=== PATIENT | female | born 1950 | race Caucasian/White ===

== ENCOUNTER 2019-03-28 12:25 | Emergency (ER) | payer MEDICARE, BC ==
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
--- NOTE | 2019-03-28 19:11 | CT ---
DATE OF SERVICE: 03/28/19 CLINICAL DATA: elevated blood pressure with fainting spells UNENHANCED BRAIN CT: Multislice acquisition through the brain without IV contrast was performed. No priors. No masses or mass effect. No intracranial hemorrhage. No evidence of acute or subacute infarct. No osseous abnormalities. IMPRESSION: No acute intracranial abnormalities. [id number] [facility]
== END 2019-03-28 13:45 | disposition home or self-care (01) ==
LOC: LB.ED 12:25
DX: R03.0 Elevated blood-pressure reading, without diagnosis of hypertension (principal); Z88.8 Allergy status to other drugs, medicaments and biological substances; Z79.899 Other long term (current) drug therapy
CPT/HCPCS: 36415; 70450; 80053; 84484; 85025; 93005; 99284-25

== ENCOUNTER 2023-01-17 10:19 | Emergency (ER) | payer MEDICARE ==
[2023-01-17] MEDS ORDERED: valACYclovir 500 MG Tab ONE (12:00)
== END 2023-01-17 12:20 | disposition home or self-care (01) ==
LOC: LB.ED 10:19
DX: B02.9 Zoster without complications (principal); Z88.1 Allergy status to other antibiotic agents; Z88.8 Allergy status to other drugs, medicaments and biological substances
CPT/HCPCS: 36415; 84484; 93005; 99283; A9270